=== PATIENT | female | born 1955 | race Native Hawaiian/Other Pacific Islander ===

== ENCOUNTER 2017-01-16 12:25 | Emergency (ER) | payer OTHER ==
[~2017-01-16] VITALS: Ht 162.6 cm; Wt 93.4 kg
[~2017-01-16 12:25] MED LIST: LISI10TA11 PO
[2017-01-16 12:45] VITALS: BP 153/92; TEMP 98
== END 2017-01-16 16:15 | disposition left against medical advice (07) ==
LOC: ED 12:25
DX: Z04.8 Encounter for examination and observation for other specified reasons (principal)
CPT/HCPCS: 99281

== ENCOUNTER 2017-02-12 13:25 | Outpatient (CLI) | payer OTHER ==
[2017-02-12 14:06] LABS: PLATELET COUNT 234 K/uL (152-353)
[2017-02-12 14:36] LABS: POTASSIUM 4.1 mmol/L (3.6-5.2); SODIUM 139 mmol/L (136-145)
== END 2017-02-12 19:46 | disposition home or self-care (01) ==
LOC: LAB 13:25
PROVIDERS: Nurse Practitioner Family
DX: I10 Essential (primary) hypertension (principal); E78.4 Other hyperlipidemia; Z79.899 Other long term (current) drug therapy; E55.9 Vitamin D deficiency, unspecified
CPT/HCPCS: 80053; 80061; 82306; 82607; 83036; 84439; 84443; 85027

== ENCOUNTER 2017-03-13 15:05 | Outpatient (CLI) | payer OTHER ==
[2017-03-13 15:29] LABS: POTASSIUM 4.4 mmol/L (3.6-5.2); SODIUM 141 mmol/L (136-145)
[2017-03-13 15:37] LABS: PLATELET COUNT 219 K/uL (152-353)
== END 2017-03-13 19:08 | disposition home or self-care (01) ==
LOC: LAB 15:05
PROVIDERS: Nurse Practitioner Family
DX: C50.211 Malignant neoplasm of upper-inner quadrant of right female breast (principal)
CPT/HCPCS: 80053; 85027

== ENCOUNTER 2017-04-03 14:22 | Outpatient (CLI) | payer OTHER ==
[2017-04-03 14:42] LABS: PLATELET COUNT 286 K/uL (152-353)
[2017-04-03 15:03] LABS: POTASSIUM 4.3 mmol/L (3.6-5.2); SODIUM 142 mmol/L (136-145)
== END 2017-04-03 19:06 | disposition home or self-care (01) ==
LOC: LAB 14:22
PROVIDERS: Nurse Practitioner Family
DX: Z00.00 Encounter for general adult medical examination without abnormal findings (principal); C50.211 Malignant neoplasm of upper-inner quadrant of right female breast; Z79.899 Other long term (current) drug therapy; I10 Essential (primary) hypertension; E55.9 Vitamin D deficiency, unspecified; E78.4 Other hyperlipidemia; F41.8 Other specified anxiety disorders
CPT/HCPCS: 80053; 80061; 82306; 82607; 83036; 84436; 84443; 85027

== ENCOUNTER 2017-04-17 14:13 | Outpatient (CLI) | payer OTHER ==
[2017-04-17 14:58] LABS: POTASSIUM 4.4 mmol/L (3.6-5.2); SODIUM 139 mmol/L (136-145)
[2017-04-17 15:04] LABS: PLATELET COUNT 182 K/uL (152-353)
== END 2017-04-17 19:18 | disposition home or self-care (01) ==
LOC: LAB 14:13
PROVIDERS: Nurse Practitioner Family
DX: Z79.899 Other long term (current) drug therapy (principal); Z51.81 Encounter for therapeutic drug level monitoring
CPT/HCPCS: 80053; 85007; 85027

== ENCOUNTER 2017-04-23 07:54 | Emergency (ER) | payer OTHER ==
[~2017-04-23] VITALS: Ht 162.6 cm; Wt 89.4 kg
[2017-04-23 08:21] LABS: PLATELET COUNT 217 K/uL (152-353)
[2017-04-23 08:29] LABS: POTASSIUM 3.7 mmol/L (3.6-5.2); SODIUM 136 mmol/L (136-145)
[2017-04-23 09:28] VITALS: BP 157/88; TEMP 97.9
== END 2017-04-23 09:37 | disposition home or self-care (01) ==
LOC: ED 07:54
DX: R11.2 Nausea with vomiting, unspecified (principal); C50.911 Malignant neoplasm of unspecified site of right female breast
CPT/HCPCS: 36415; 80053; 85027; 86318; 96374; 96376; 99284; J2405

== ENCOUNTER 2020-05-09 16:06 | Emergency (ER) | payer OTHER ==
[~2020-05-09] VITALS: Ht 162.6 cm; Wt 93.9 kg
[2020-05-09 16:24] VITALS: BP 106/76; TEMP 99.1
[2020-05-09 17:02] LABS: PLATELET COUNT 316 K/uL (152-353)
== END 2020-05-09 19:07 | disposition home or self-care (01) ==
LOC: ED 16:06
PROVIDERS: Emergency Medicine Emergency Medical Services
DX: K52.89 Other specified noninfective gastroenteritis and colitis (principal)
CPT/HCPCS: 36415; 80053; 82150; 82272; 83690; 85027; 96360; 96375; 99284; J2405

== ENCOUNTER 2020-05-26 09:39 | Outpatient (CLI) | payer OTHER | END 2020-05-26 21:52 | disposition home or self-care (01) | LOC: CT 09:39 | DX: R10.84 Generalized abdominal pain (principal) ==

== ENCOUNTER 2020-09-15 16:33 | Outpatient (CLI) | payer OTHER | END 2020-09-15 19:29 | disposition home or self-care (01) | LOC: CT 16:33 | PROVIDERS: ATTEND Nurse Practitioner Family | DX: R53.83 Other fatigue (principal); R29.898 Other symptoms and signs involving the musculoskeletal system; M54.2 Cervicalgia ==

== ENCOUNTER 2020-10-12 10:44 | Outpatient (CLI) | payer OTHER | END 2020-10-12 19:38 | disposition home or self-care (01) | LOC: RESP 10:44 | PROVIDERS: ATTEND Internal Medicine Cardiovascular Disease | DX: Z01.810 Encounter for preprocedural cardiovascular examination (principal); Z79.899 Other long term (current) drug therapy | CPT/HCPCS: 36415; 80061; 93005; 94760 ==

== ENCOUNTER 2020-11-30 11:59 | Outpatient (CLI) | payer OTHER ==
[2020-11-30 12:38] LABS: PLATELET COUNT 242 K/uL (152-353)
[2020-11-30 12:41] LABS: POTASSIUM 3.7 mmol/L (3.6-5.2); SODIUM 139 mmol/L (136-145)
== END 2020-11-30 21:11 | disposition home or self-care (01) ==
LOC: CT 11:59
PROVIDERS: ATTEND Nurse Practitioner Family
DX: R51.9 Headache, unspecified (principal); R41.82 Altered mental status, unspecified; R53.83 Other fatigue
CPT/HCPCS: 36415; 80053; 82550; 82553; 84484; 85027; 93005

== ENCOUNTER 2021-01-04 10:24 | Emergency (ER) | payer OTHER ==
[~2021-01-04] VITALS: Ht 162.6 cm; Wt 95.3 kg
[2021-01-04 10:34] VITALS: TEMP 98.2
[2021-01-04 11:03] LABS: PLATELET COUNT 163 K/uL (152-353)
[2021-01-04 11:12] LABS: POTASSIUM 4.5 mmol/L (3.6-5.2)
[2021-01-04 12:00] VITALS: BP 96/58
== END 2021-01-04 12:06 | disposition home or self-care (01) ==
LOC: ED 10:24
PROVIDERS: Family Medicine
DX: J06.9 Acute upper respiratory infection, unspecified (principal); B34.9 Viral infection, unspecified
CPT/HCPCS: 80053; 82550; 82553; 84484; 85027; 93005; 99283; 99284

== ENCOUNTER 2021-01-14 12:45 | Inpatient (IN) | payer OTHER ==
[~2021-01-14] VITALS: Ht 162.6 cm; Wt 103.1 kg
[2021-01-14 12:46] VITALS: BP 81/32; TEMP 99.2
[2021-01-14 13:08] LABS: PLATELET COUNT 168 K/uL (152-353)
[2021-01-14 13:18] LABS: POTASSIUM 3.3 mmol/L (3.6-5.2); SODIUM 138 mmol/L (136-145)
[2021-01-14 13:30] VITALS: BP 87/41
[2021-01-14 13:30] LABS: PARTIAL THROMBOPLASTIN TIME 26.1 SECONDS (24.5-33.6)
[2021-01-14 14:16] VITALS: BP 89/55
[2021-01-14 14:43] VITALS: BP 98/57
[2021-01-14 16:28] VITALS: BP 100/58; TEMP 98; Ht 162.6 cm; Wt 103.1 kg
[2021-01-14] MEDS ORDERED: LYRICA50 MG PO (17:45)
[2021-01-14] MEDS ORDERED: FEMARA2.5 MG PO (17:52)
[2021-01-14] MEDS ORDERED: LISI20TA11 PO (17:53)
[2021-01-14] MEDS ORDERED: HYDR10TA47 PO (17:55)
[2021-01-14] MEDS ORDERED: ELIQUIS5 MG PO (17:57)
[2021-01-14] MEDS ORDERED: FLUTICASON50 MCG/AC1 INH (17:59)
--- NOTE | 2021-01-14 19:45 | NUR ---
ENTERED PATIENT'S ROOM. PATIENT LYING IN BED WITH EYES CLOSED. NAD NOTED. NC INTACT @ 3L/MIN. 20G TO LEFT HAND INFUSING NS @ 100ML/HR. NO ERYTHEMA OR SWELLING NOTED. ENCOURAGED PATIENT TO CONTINUE USING INCENTIVE SPIROMETER DIRECTED- SHE IS ABLE TO PULL 500 AT THIS TIME. SHE DOES REPORT PAIN IN BOTH LOWER LEGS. NEGATIVE MASSIEL'S SIGN BILATERALLY. REQUESTING LYRICA 50MG THAT SHE TAKES REGULARLY AT HOME. I INFORMED HER THAT I WOULD HAVE TO RECEIVE AN ORDER FROM THE ER DOCTOR. SHE VERBALIZED UNDERSTANDING. TELEMETRY AND CONTINUOUS PULSE OXIMETER PLACED ON PATIENT. BED LOCKED AND IN LOWEST POSITION. CALL LIGHT WITHIN REACH.
[2021-01-14 20:00] VITALS: BP 105/60; TEMP 99.8
--- NOTE | 2021-01-14 20:30 | NUR ---
IN WITH PATIENT WHILE SHE TRANSFERRED TO THE BATHROOM. SHE STATES THAT SHE STILL FEELS WEAK WHEN GETTING UP. INSTRUCTED HER TO SIT ON THE SIDE OF BED FOR A FEW MINUTES BEFORE STANDING. GAIT WAS UNSTEADY- ASSISTED PATIENT IN MOVING IV PUMP. O2 SATURATION DECREASED TO 80% AFTER PATIENT RETURNED TO BED- SHE REMOVED HER NASAL CANNULA DURING TRANSFER. INSTRUCTED HER THAT WE WOULD NEED TO GET A BSC FOR HER TO USE, SO SHE WOULDN'T HAVE TO REMOVE HER NC. SHE VERBALIZED UNDERSTANDING. EXTENSION SET PLACED ON NASAL CANNULA. BSC IN ROOM. CALL LIGHT WITHIN REACH.
--- NOTE | 2021-01-14 21:14 | NUR ---
CALLED DR. ALVAREZ TO REQUEST ORDER FOR LYRICA 50MG. TELEPHONE ORDER GIVEN FOR LYRICA 50MG 1 CAP PO X ONE TIME DOSE. NO FURTHER ORDERS GIVEN AT THIS TIME.
--- NOTE | 2021-01-14 23:30 | NUR ---
IN TO GIVE PATIENT TYLENOL AND COUGH SYRUP PER HER REQUEST. NC INTACT. NAD NOTED. 200CC OF CLEAR YELLOW URINE EMPTIED FROM BSC. O2 SATURATION DROPPING WHILE PATIENT IS LYING IN BED. BETWEEN 83-87%. ALTERNATED LYING ON RIGHT AND LEFT SIDE AND IN PRONE POSITION. PATIENT DONE WELL IN PRONE POSITION. O2 SATURATION IMPROVED. NOW 97-98%. BED LOCKED AND IN LOWEST POSITION. CALL LIGHT WITHIN EASY REACH.
[2021-01-15] VITALS: BP 97/63; TEMP 98
[2021-01-15 04:00] VITALS: BP 117/65; TEMP 97.5
--- NOTE | 2021-01-15 06:04 | NUR ---
PATIENT RESTING QUIETLY IN BED IN LEFT SIDE LYING POSITION. EYES CLOSED. RESPIRATIONS EVEN AND UNLABORED. NAD NOTED. NC @ 3L/MIN. 20G TO LEFT HAND PATENT AND INTACT. NS INFUSING @ 100ML/HR. BED LOCKED AND IN LOWEST POSITION. CALL LIGHT WITHIN EASY REACH.
[2021-01-15 08:00] VITALS: BP 113/69; TEMP 97.3
--- NOTE | 2021-01-15 08:00 | NUR ---
HISTOLOGY TECHNOLOGIST NOTIFIED STRATEGY LEAD THAT PT'S HR WAS ELEVATED. PT'S HR WAS AT 118 VIA TELEMTRY. STRATEGY LEAD WENT TO PT'S ROOM WHERE PT STATED THAT SHE HAD GOTTEN WINDED WHILE UP TO THE BEDSIDE COMMODE. AFTER GETTING PT BACK INTO BED AND TAKING VITALS ALONG WITH ASSESSMENT, THE PT FELT LIKE EATING BREAKFAST. BREAKFAST WAS SETUP ON BEDSIDE TABLE OVER PT. WHILE PT WAS EATING O2 DROPPED TO THE 82-86 RANGE. RT WAS CONTACTED AND STRATEGY LEAD WAS INSTRUCTED TO TURN NASAL CANULA UP TO 4LPM. AFTER DOING SO AND MONITORING PT, O2 WENT UP TO THE LOWER 90 RANGE. WILL CONTINUE TO MONITOR.
--- NOTE | 2021-01-15 08:45 | NUR ---
PT IS EXHIBITING SIGNS OF TACHYCARDIA ON TELEMTRY AND A HEART RATE OF 86BPM. STRIP HAS BEEN PRINTED TO BE PLACED IN CHART.
--- NOTE | 2021-01-15 09:11 | NUR ---
NURSE INCREASED N/C TO 4 LPM. SPO2 96%
--- NOTE | 2021-01-15 10:05 | NUR ---
PT IS NOW SHOWING NORMAL SINUS RHYTHM WITH A HR OF 78BPM. WILL CONTINUE TO MONITOR.
--- NOTE | 2021-01-15 11:39 | NUR ---
PT'S TELEMTRY BEGAN TO SHOW ANOTHER ABNORMAL WAVE PATTERN. MEN'S AND BOYS' CLOTHING SALESPERSON WENT TO CHECK ON PT. PT STATED THAT SHE FEELS A TIGHTNESS IN HER CHEST THAT SHE THINKS MAY BE HEARTBURN. MD HAS BEEN CONTACTED AND MEN'S AND BOYS' CLOTHING SALESPERSON WAS INSTRUCTED TO ORDER A 12-LEAD AND CARDIAC ENZYMES. WAITING FOR FURTHER INSTRUCTIONS.
--- NOTE | 2021-01-15 11:42 | NUR ---
RT ARRIVED TO PERFORM 12-LEAD ON PT.
[2021-01-15 12:00] VITALS: BP 110/61; TEMP 98.1
[2021-01-15 12:12] LABS: POTASSIUM 3.5 mmol/L (3.6-5.2)
[2021-01-15 16:00] VITALS: BP 113/68; TEMP 97.9
--- NOTE | 2021-01-15 16:32 | NUR ---
PT STATED TO CATALYTIC CASE OPERATOR THAT SHE STILL HAD PRESSURE IN HER CHEST. WHEN CATALYTIC CASE OPERATOR ASKED IF IT IS PRESSURE OR PAIN, PT STATED THAT IT IS PRESSURE. MD HAS BEEN NOTIFIED AND IS ORDERING A CT SCAN, CARDIAC ENZYMES IN 6 HOURS, AND HOB >30 DEGREES. AWAITING FURTHER INSTRUCTIONS.
--- NOTE | 2021-01-15 17:27 | NUR ---
PT'S O2 SATURATION WAS FALLING INTO THE 80'S RANGE. RT WAS CONTACTED AND PLACED PT ON HIGH FLOW.
--- NOTE | 2021-01-15 17:42 | NUR ---
PLACED PT ON HFNC @ 50% FIO2, LITER FLOW AT 40. SPO2 95%, HR 78. PT WOO THERAPY WELL. NURSE NOTIFIED.
[2021-01-15 20:00] VITALS: BP 121/73; TEMP 98.4
--- NOTE | 2021-01-15 20:30 | NUR ---
ENTERED PATIENT'S ROOM. PATIENT LYING IN BED WITH EYES CLOSED. HIGH FLOW NC INTACT. SETTINGS ARE: 40L; 50% 20G TO LEFT HAND INTACT. NS INFUSING @ 100. DENIES PAIN, BUT REQUESTING THAT NORCO 10/325MG BE ORDERED FOR PAIN INSTEAD OF MORPHINE. SHE NORMALLY TAKES THIS AT HOME. I INFORMED HER THAT I WOULD INFORM ONCOMING SHIFT TO SPEAK WITH HOSPITALIST. SHE VERBALIZED UNDERSTANDING. SHE ALSO GAVE ME HER SISTER, KTAIANA'S, PHONE NUMBER IN CASE SHE CALLS TO RECEIVE UPDATES. SHE STATES IT IS OKAY WITH HER IF SHE RECEIVES UPDATES. BED LOCKED AND IN LOWEST POSITION. CALL LIGHT WITHIN EASY REACH.
--- NOTE | 2021-01-15 22:15 | NUR ---
PATIENT HAS BEEN UP TO BSC A FEW TIMES THIS SHIFT. PATIENT DOES DESAT TO 87-90% WHILE TRANSFERRING TO BS. HIGH FLOW NC REMAINS INTACT. O2 SATURATION IMPROVES WHEN PATIENT RETURNS TO BED AND STAYS IN LEFT SIDE-LYING OR PRONE POSITION. NAD NOTED. CALL LIGHT WITHIN EASY REACH.
[2021-01-16] VITALS (7 sets, daily range): BP systolic 112–138; BP diastolic 62–83; TEMP 97.8–98.6
--- NOTE | 2021-01-16 00:30 | NUR ---
PATIENT LYING IN BED WITH EYES CLOSED. HIGH FLOW NC INTACT. NS INFUSING @ 100ML/HR. NAD NOTED. CURRENT O2 SATURATION 95%. BED LOCKED AND IN LOWEST POSITION. CALL LIGHT WITHIN REACH.
[2021-01-16 00:52] LABS: PLATELET COUNT 161 K/uL (152-353)
--- NOTE | 2021-01-16 05:00 | NUR ---
PATIENT'S O2 SAT 88-90%. PATIENT RESTING QUIETLY IN BED WITH EYES CLOSED. NC NOT IN THE RIGHT POSITION. NOW 02 SATS 95-97%. CALL LIGHT WITHIN REACH. PATIENT DENIES ANY OTHER NEEDS AT THIS TIME.
--- NOTE | 2021-01-16 06:14 | NUR ---
PATIENT HAD SMALL COUGHING FIT. ENCOURAGED HER TO TAKE SLOW, DEEP BREATHS. SHE WAS ABLE TO PULL 1000 ON THE INCENTIVE SPIROMETER. IN LEFT SIDE-LYING POSITION NOW. CURRENT O2 SATURATION: 92-95%. BED LOCKED AND IN LOWEST POSITION. CALL LIGHT WITHIN EASY REACH.
--- NOTE | 2021-01-16 20:19 | NUR ---
IN PT'S ROOM AT THIS TIME. PT. VERBALIZED SHE TAKES NORCO 10/325 MG AT HOME FOR PAIN AND THAT SHE WOULD RATHER TAKE THAT INSTEAD OF MORPHINE 2 MG Q4H FOR PAIN. I TOLD HER I WOULD HAVE TO RECEIVE A DOCTOR'S ORDER BEFORE AND PT VERBALZIED UNDERSTANDING. NAD NOTED AT THIS TIME. NS INFUSING AT 100ML/HR AND SIDE RAILS UP TIMES TWO IN A LOW-FOWLERS POSITION WITH CALL LIGHT WITHIN REACH.
--- NOTE | 2021-01-16 20:39 | NUR ---
CALLED PHYSICIAN ABOUT PT'S REQUEST FOR MEDICATION PRN CHANGE FOR NORMAL HOME MEDICATION FOR PAIN RECIEVED AN ORDER AT THIS TIME TO D/C MORPHINE SULFATE 2 MG IVP Q4H FOR PAIN AND TO IMPLEMENT NORCO 7.5/325 MG PO Q6H NEEDED FOR PAIN
--- NOTE | 2021-01-16 21:40 | NUR ---
PM MEDICATIONS GIVEN AT THIS TIME. PT TOLERATED WELL. EDUCATED INCENTIVE SPIROMETER USAGE AT THIS TIME. PT GOT UP TO ONLY 500 ON THE INCENTIVE SPIROMETER.
[2021-01-17 03:52] VITALS: BP 149/85; TEMP 98
[2021-01-17 05:53] LABS: POTASSIUM 3.9 mmol/L (3.6-5.2)
[2021-01-17 08:00] VITALS: BP 133/82; TEMP 98
[2021-01-17 12:00] VITALS: BP 160/70; TEMP 97.8
[2021-01-17 16:00] VITALS: BP 135/60; TEMP 98.2
[2021-01-17 20:13] VITALS: BP 145/84; TEMP 98
--- NOTE | 2021-01-17 20:29 | NUR ---
IN TO GIVE PM MEDS AT THIS TIME. PT IS IN A HIGH-FOWLERS POSITION WITH SIDE RAILS UP TIMES TWO WITH BED IN LOWEST POSITION AND CALL LIGHT WITHIN REACH. EDUCATED PT. ON INCENTIVE SPIROMETER USAGE AND PT ONLY GOT UP TO 500 VOLUME AT THIS TIME. ENCOURAGED PT. TO USE DEVICE MORE FREQUENTLY DURING THE DAY. PT VERBALIZED UNDERSTANDING. PT STILL ON HIGH FLOW NASAL CANNULA AT 40LPM AT 50% CAPACITY. NAD NOTED OR VERBALIZED AT THIS TIME. WILL CONTINUE TO MONITOR.
[2021-01-18 00:08] VITALS: BP 136/83; TEMP 97.5
--- NOTE | 2021-01-18 02:49 | NUR ---
IN TO HANG NORMAL SALINE FLUIDS AT 100 ML/HR AT THIS TIME. PT RESTING QUIETLY WITH SIDE RAILS UP TIMES TWO AND BED IN LOWEST POSITION AT THIS TIME IN A LOW FOWLERS POSITION. CALL LIGHT WITHIN REACH AND NAD NOTED.
[2021-01-18 04:15] VITALS: BP 122/83; TEMP 97.9
--- NOTE | 2021-01-18 06:28 | NUR ---
PT HAD COUGHING SPELL AND RT NOTIFIED. PT DESATED INTO THE 60'S AND HIGH FLOW SETTINGS WERE CHANGED TO 50L @ 60% AT THSI TIME.
--- NOTE | 2021-01-18 06:29 | NUR ---
CALLED TO PATIENT ROOM BY RN DUE TO LOW SPO2. INCREASED HFNC TO 60% AND 50LPM. PATIENT INCREASED TO 90% AND STATES THAT SHE IS FEELING MORE COMFORTABLE AT THIS TIME. WILL CONTINUE TO MONITOR AND WEAN WOO.
[2021-01-18 06:43] LABS: POTASSIUM 4.2 mmol/L (3.6-5.2)
--- NOTE | 2021-01-18 07:50 | NUR ---
REC' REPORT FROM REECE SPENCER RN. PT NOTED TO BE LAYING IN BED ON HER LEFT SIDE IN LOW FOWLERS. IVF INFUSING WITHOUT DIFFICULTY TO 20G TO LEFT WRIST. NS AT 100ML/HR. AM ASSESSMENT COMPLETED AT THIS TIME CRACKLES NOTED TO LEFT LUNG THROUGH OUT. RIGHT SIDE NOTED TO BE DIMINISHED THROUGH OUT. ACTIVE BS X4 QUADRANTS. PT ENCOURAGED TO ROTATE TO RIGHT SIDE, PT STATES "I CAN'T, I DO BETTER ON THIS SIDE" PT O2 NOTED TO BE 98% ON HIGH FLOW AT 50LPM 60%FIO2. PT EDU THAT TURNING WILL HELP WITH DRAINAGE FROM THAT LEFT LUNG. WILL CON'T TO MONITOR PT.
[2021-01-18 08:00] VITALS: BP 125/95; TEMP 97.6
--- NOTE | 2021-01-18 08:30 | NUR ---
SPOKE WITH DR. MADRIGAL ABOUT PT'S MORNING ASSESSMENT AND TURNING AND PRONING AND PT'S COMMENT AND WHAT WAS GIVEN TO ME IN REPORT. DR. MADRIGAL CONFIRMS PT NEEDS TO TURN AND PRONE MUCH SHE CAN TOLERATE TO PROMOTE DRAINAGE AND AIR FLOW THROUGH THE LUNGS, DR. MADRIGAL STATES "I'M OK WITH AN O2 SAT OF 90% FOR A LITTLE WHILE"
--- NOTE | 2021-01-18 09:15 | NUR ---
PT PULSE OX ALARMED SHOWING 80%. IN TO CHECK ON PT. PT NOTED TO BE GETTING BACK IN BED WITH HIGH FLOW O2 ON. PT STATES "I HAD TO USE THE BATHROOM" PT NOTED TO BE SHORT OF BREATH AND COUGHING AT THIS TIME. PT GIVEN AM MEDS. PT EDUCATED ON USE OF IS AND HOW IT HELPS AND THE IMPORTANCE OF IT. PT EDUCATED ON PRONING AND TURNING TO EACH SIDE FOR LONG TOLERATED. PT VERBALIZED UNDERSTANDING AT THIS TIME. PT TOLERATED AM MEDS WELL. WILL CON'T TO MONITOR PT.
[2021-01-18 12:00] VITALS: BP 105/70; TEMP 97.9
--- NOTE | 2021-01-18 15:28 | NUR ---
TITRATED O2 FROM 60% TO 50%. TX TOLERATED WELL AT THIS TIME.
[2021-01-18 16:00] VITALS: BP 122/62; TEMP 98.7
[2021-01-18 20:00] VITALS: BP 137/75; TEMP 98.1
--- NOTE | 2021-01-18 20:15 | NUR ---
PATIENT'S CURRENT O2 SAT IS 86% AND ABOVE. PATIENT LYING IN BED WITH HIGH FLOW NC INTACT. 50%; 60L. STATES SHE JUST GOT UP TO USE THE BSC. INSTRUCTED HER TO LIE IN THE LEFT SIDE LYING POSITION. USED INCENTIVE SPIROMETER X 10 BREATHS AND PULMICORT ADMINISTERED. O2 SATURATION INCREASED TO 90%. ENCOURAGED PATIENT TO TAKE SLOW, DEEP BREATHS. 20G TO LEFT WRIST INTACT WITH NS @ 40ML/HR. GUAIFENESIN DM GIVEN WELL HYDROCODONE FOR PAIN. PATIENT ALSO REQUEST MOM BC IT HELPS WITH HER EPIGASTRIC PAIN. I DID EXPLAIN THAT THIS IS USUALLY GIVEN FOR CONSTIPATION, BUT SHE STATES THAT SHE HAD IT A FEW TIMES ALREADY WITH NO DIARRHEA. I ALSO ENCOURAGED HER TO [place] [facility] [place] VERBALIZED UNDERSTANDING. BED LOCKED AND IN LOWEST POSITION. CALL LIGHT WITHIN EASY REACH.
[2021-01-19] VITALS: BP 121/78; TEMP 98.5
--- NOTE | 2021-01-19 00:45 | NUR ---
CURRENT O2 SATURATION IS 100% ON HIGH FLOW NC.
[2021-01-19 04:00] VITALS: BP 146/79; TEMP 97.7
[2021-01-19 04:48] LABS: PLATELET COUNT 204 K/uL (152-353)
[2021-01-19 04:58] LABS: POTASSIUM 4.2 mmol/L (3.6-5.2)
--- NOTE | 2021-01-19 06:10 | NUR ---
PT RESTING QUIETLY IN BED WITH EYES CLOSED. HIGH FLOW NC INTACT. RESPIRATIONS EVEN AND UNLABORED. NAD NOTED. O2 SATURATION RANGING FROM 93-94%. BED LOCKED AND IN LOWEST POSITION. CALL LIGHT WITHIN REACH.
--- NOTE | 2021-01-19 07:45 | NUR ---
AT PT'S BEDSIDE. PT NOTED TO BE RESTING BUT AWAKE ON LEFT SIDE WITH HIGH FLOW O2 ON AT 50LPM FIO2-60%. IVF NS INFUSING WITHOUT DIFFICULTY AT 40ML/HR. PT GIVEN COMBIVENT, PULMICORT, AND FLONASE PER MD ORDERS. AM ASSESSMENT COMPLETED. NON PITTING EDEMA NOTED TO PT'S BLE. FINE CRACKLES NOTED THROUGH OUT BILAT ON AUSCULTATION. S1-S2 HEARD ON AUSCULTATION. + ABD SOUNDS. PT DENIES ANY C/O AT THIS TIME.
[2021-01-19 08:00] VITALS: BP 135/85; TEMP 97.4
--- NOTE | 2021-01-19 09:20 | NUR ---
ANNA OBANDO, RESPIRATORY AT PT'S BEDSIDE. PT LAYING IN BED IN SEMI-FOWLERS. NO DISTRESS NOTED, PT'S PULSE OX ALARMING IN MID TO LOW 80'S. ANNA REPORTS INCREASING PT'S HIGH FLOW TO 55LPM FIO2-70%. WILL CON'T TO MONITOR PT CLOSELY.
--- NOTE | 2021-01-19 09:20 | NUR ---
TURN UP HIGHFLOW 55LPM/70% AND SATS WAS 90-91% FROM 87%
--- NOTE | 2021-01-19 10:10 | NUR ---
REASSESSED PT'S LUNG SOUNDS. FINE CRACKLES CON'T TO BE NOTED THROUGH OUT BILAT. PT IN SEMI FOWLERS. ENCOURAGED PT TO KEEP MOVING AND TURNING TOLERATED, LAYING PRONE MUCH TOLERATED TO IMPROVE BREATHING AND PROMOTE MOVEMENT OF MUCUS IN LUNGS. PT BLE ELEVATED TO REDUCE SWELLING. ALL AM MEDS COMPLETE. PT TOLERATED WELL. PT REPORTS FEELING BETTER NOT SICK JUST THE SOB. EDU PT SHE WILL HAVE SOME GOOD DAYS AND BAD DAYS, GOOD MOMENTS AND BAD TO NOT GET DISCOURAGED IF SHE FEELS WORSE SOME TIMES MORE THAN OTHERS. PT VERBALIZES UNDERSTANDING. WILL CON'T TO MONITOR PT. O2 SATS CURRENTLY 92% ON HIGH FLOW O2 55LPM FIO2-70%.
[2021-01-19 12:00] VITALS: BP 144/80; TEMP 97.8
[2021-01-19 16:00] VITALS: BP 148/85; TEMP 97.9
--- NOTE | 2021-01-19 16:09 | NUR ---
PATIENT PLACED BACK ON HFNC 60LPM/83% FROM NRB. SATS 98%
[2021-01-19 20:00] VITALS: BP 137/78; TEMP 98
--- NOTE | 2021-01-19 20:00 | NUR ---
PATIENT LYING IN BED WATCHING TV. HIGH FLOW NC INTACT. CURRENT SETTINGS: 60L/MIN @ 88%. NAD NOTED. PATIENT SEEMS TO BE MOVING AROUND WITH MORE EASE THAN PREVIOUSLY NOTED. REQUESTING HYDROCONE FOR CHRONIC BACK AND LEG PAIN. 22G TO LEFT WRIST PATENT AND INTACT. NS INFUSING @ 40ML/HR. BED LOCKED AND IN LOWEST POSITION. CALL LIGHT WITHIN EASY REACH.
[2021-01-20] VITALS (7 sets, daily range): BP systolic 121–150; BP diastolic 78–89; TEMP 97.6–98.2
--- NOTE | 2021-01-20 03:15 | NUR ---
PATIENT'S HR SHOWING 48-50 ON THE MONITOR AT THIS TIME. UPON ENTERING PATIENT'S ROOM, PATIENT RESTING QUIETLY IN BED IN LEFT SIDE-LYING POSITION. EYES CLOSED. RESPIRATIONS EVEN AND UNLABORED. NAD NOTED. CALL LIGHT WITHIN EASY REACH.
--- NOTE | 2021-01-20 04:00 | NUR ---
PATIENT UP TO BSC. O2 SATURATION REMAINS WNL. NAD NOTED. PATIENT CALLED D/T HIGH-FLOW BEEPING. OBSTRUCTION FIXED. PATIENT WAS UNABLE TO MAKE IT TO BSC BEFORE URINATING. ASSISTED PATIENT WITH CHANGING INTO BRIEF AND GOWN. PATIENT TOLERATED WELL. O2 REMAINED STABLE. BED LOCKED AND IN LOWEST POSITION. NO OTHER CONCERNS OR COMPLAINTS VOICED AT THIS TIME. CALL LIGHT WITHIN REACH.
[2021-01-20 05:48] LABS: PLATELET COUNT 229 K/uL (152-353)
[2021-01-20 06:02] LABS: POTASSIUM 3.9 mmol/L (3.6-5.2)
--- NOTE | 2021-01-20 06:15 | NUR ---
IN TO CHECK ON PATIENT. SHE IS RESTING QUIETLY WITH EYES CLOSED. HIGH FLOW NC INTACT. LEFT WRIST IS BENT. IV PUMP BEEPING. AREA PROXIMAL TO IV SITE DOES APPEAR SWOLLEN. NS STOPPED AT THIS TIME. ONE ATTEMPT MADE TO START NEW IV WITH 22G- UNSUCCESSFUL. WILL REPORT TO ONCOMING SHIFT. BED LOCKED AND IN LOWEST POSITION. CALL LIGHT WITHIN EASY REACH.
[2021-01-21 04:27] VITALS: BP 135/71; TEMP 97.7
[2021-01-21 05:19] LABS: PLATELET COUNT 211 K/uL (152-353)
[2021-01-21 05:32] LABS: POTASSIUM 4.1 mmol/L (3.6-5.2)
[2021-01-21 08:00] VITALS: BP 138/77; TEMP 97.4
[2021-01-21 12:00] VITALS: BP 126/79; TEMP 98.1
--- NOTE | 2021-01-21 13:37 | NUR ---
PT ENCOURAGED TO SIT UP IN RECLINER OR ON COUCH. ROOM ARRANGED FOR EASE OF MOVEMENT. PT AGREES AND VERBALIZES UNDERSTANDING OF WHY SHE NEEDS TO GET UP AND MOVE.
[2021-01-21 16:00] VITALS: BP 128/82; TEMP 98.6
--- NOTE | 2021-01-21 16:44 | NUR ---
PT UP TO COUCH, TOLERATING ACTIVITY WELL.
--- NOTE | 2021-01-21 17:50 | NUR ---
PT BACK TO BED, STATES SHE ENJOYED SITTING UP AND IS TIRED NOW.
[2021-01-21 20:00] VITALS: BP 134/92; TEMP 98.4
[2021-01-22] VITALS (7 sets, daily range): BP systolic 98–132; BP diastolic 52–79; TEMP 97.2–98.6
[2021-01-22 05:39] LABS: PLATELET COUNT 204 K/uL (152-353)
[2021-01-22 05:52] LABS: POTASSIUM 3.8 mmol/L (3.6-5.2)
--- NOTE | 2021-01-22 10:15 | NUR ---
PT UP TO COUCH TO SIT, TOLERATES ACTIVITY WELL.
--- NOTE | 2021-01-22 11:48 | NUR ---
PT BACK TO BED. TOLERATED SITTING UP ON COUCH BUT STATES SHE IS TIRED.
--- NOTE | 2021-01-22 14:51 | NUR ---
1430 DECREASED PT. FIO2 TO 75% AND FLOW TO 55LM. WILL CONTINUE TO MONITOR.
--- NOTE | 2021-01-22 15:15 | NUR ---
PATIENT MAINTAINING 93% ON NEW HIGH FLOW SETTINGS 55LPM/75%
--- NOTE | 2021-01-22 17:08 | NUR ---
MDI ADMIN AND CPT PERFORMED. IS USED X 5 REPS. PT ON RT SIDE, TOLERATING NEW SETTINGS, 93% ON 55LPM/70%.
--- NOTE | 2021-01-23 01:37 | NUR ---
PT RESTING. COVID POSITIVE.
[2021-01-23 04:16] VITALS: BP 98/58; TEMP 97.9
[2021-01-23 05:19] LABS: PLATELET COUNT 204 K/uL (152-353)
[2021-01-23 05:32] LABS: POTASSIUM 3.6 mmol/L (3.6-5.2)
[2021-01-23 08:00] VITALS: BP 108/64; TEMP 97.9
--- NOTE | 2021-01-23 11:01 | NUR ---
MD IN WITH PT ASSESSING PT AND EXPLAINING TO PT THAT PHYSICAL THERAPY WILL BE COMING IN TODAY TO HELP START GETTING HER UP AND MOVING. SPOKE WITH AFTERSCHOOL AND STATED THAT PT SOUNDS ALOT BETTER AND MORE CLEAR THAN BEFORE. MD INSTRUCTED AFTERSCHOOL TO KEEP IN CONTACT WITH RESPIRATORY THERAPY TO MAKE SURE THAT PT IS BEING SLOWLY WEANED ON O2. GOAL IS TO GET PT TO A TOLERABLE LEVEL ON THE NASAL CANULA SO PT CAN GO HOME ON NASAL CANULA. PT IS LAYING IN LF ON THE LEFT SIDE WITH O2 ON. BEDSIDE COMMODE WAS CLEANED, PT HAD 300ML OF URINE AND A LARGE BOWEL MOVEMENT. PT DENIES ANY NEEDS AT THIS TIME.
[2021-01-23 12:00] VITALS: BP 109/63; TEMP 98.7
[2021-01-23 16:00] VITALS: BP 114/65; TEMP 97.8
--- NOTE | 2021-01-23 17:00 | NUR ---
HANGING PT'S REMDESIVIR, IV PUMP SHOWS OCCLUSION ON PT'S SIDE. AREA AROUND IV SITE LOOKS BRUISED AND PT STATES THAT SHE IS HAVING A LITTLE BIT OF PAIN AROUND THE SITE. ELIJAH EUBANKS CAME TO ROOM AND CHECKED IV, IV WAS FLUSHED REMOVED A SMALL CLOT. AFTER CLOT REMOVED, IV FLUSHED WITHOUT DIFFICULTY AND WAS TAPED BACK DOWN. PT NO LONGER COMPLAINING ABOUT PAIN IN IV SITE.
--- NOTE | 2021-01-23 17:30 | NUR ---
PT CALLED TO NURSES STATION STATING THAT THE IV PUMP WAS BEEPING. PUMP WAS SHOWING OCCLUSION OF PT'S SIDE AGAIN. PT WAS SITTING UP ON THE EDGE OF THE BED EATING DINNER. WHEN PT STRAIGHTENING OUT ARM AND IV WAS RESTARTED IT NO LONGER SHOWED THAT AN OCCLUSION WAS PRESENT. PT ATE 75% OF HER FOOD AND IS NOW WORKING WITH THE INCENTIVE SPIROMETER REACHING A LEVEL OF 1500. NAD IS NOTED AT THIS TIME.
--- NOTE | 2021-01-23 19:30 | NUR ---
PATIENT RESTING QUIETLY IN BED WATCHING TV. HIGH FLOW NC INTACT. CURRENT SETTINGS: 45L/MIN @ 66%. RESPIRATIONS EVEN AND UNLABORED. NAD NOTED. 22G TO LEFT AC FLUSHED WITH NS. SOME BRUISING NOTED AROUND IV SITE. NS FLUSHED SLOWLY THROUGH IV SITE, BUT PATIENT DENIED ANY PAIN OR DISCOMFORT. REQUESTING HYDROCODONE TONIGHT FOR CHRONIC BACK PAIN. BED LOCKED AND IN LOWEST POSITION. CALL LIGHT WITHIN REACH.
[2021-01-23 20:00] VITALS: BP 118/66; TEMP 98.3
[2021-01-24] VITALS: BP 96/52; TEMP 98.3
[2021-01-24 04:00] VITALS: BP 104/62; TEMP 98
--- NOTE | 2021-01-24 05:40 | NUR ---
PATIENT RESTING QUIETLY IN BED. EYES CLOSED. RESPIRATIONS EVEN AND UNLABORED. HIGH FLOW NC INTACT. FLUSHED 22G TO LEFT AC WITH NS. SITE FLUSHED. NO LEAKING OR DISCOMFORT NOTED. BED LOCEKD AND IN LOWEST POSITION. CALL LIGHT WITHIN EASY REACH.
[2021-01-24 06:08] LABS: PLATELET COUNT 178 K/uL (152-353)
[2021-01-24 06:21] LABS: POTASSIUM 3.6 mmol/L (3.6-5.2)
[2021-01-24 08:00] VITALS: BP 102/61; TEMP 97.9
--- NOTE | 2021-01-24 09:22 | NUR ---
MANUFACTURERS SERVICE REPRESENTATIVE NOTICED ON NOV THAT PT HAS A HOME MED. AFTER BEING UNABLE TO FIND THE HOME MED, [facility], MANUFACTURERS SERVICE REPRESENTATIVE CONTACTED PHARMACY AND SPOKE WITH MICHAEL. MICHAEL SAID THAT WE DO NOT CURRENTLY HAVE THE MEDICINE IN STOCK AND TO SEE IF THE PT IS STILL TAKING IT AND IF SHE BROUGHT IT WITH HER. MANUFACTURERS SERVICE REPRESENTATIVE ASKED PT AND PT STATED THAT SHE DOES STILL TAKE F[facility] EVERY NIGHT AND NEEDS IT BUT DENIES BRINGING IT WITH HER. MICHAEL STATED THAT A MED REQUEST WAS SENT TO THE FLOOR FOR THAT MEDICATION LAST WEEK. MANUFACTURERS SERVICE REPRESENTATIVE WILL TALK TO PT AGAIN TO SEE IF SHE CAN HAVE SOMEONE BRING THE MEDICINE TO THE HOSPITAL.
--- NOTE | 2021-01-24 09:46 | NUR ---
PT STATES THAT SHE DOES NOT HAVE ANYONE THAT CAN BRING THE MEDICATION TO THE HOSPITAL. MICHAEL FROM PHARMACY SPOKE WITH DR. MADRIGAL AND STATED THAT HE WANTS HER TO CONTINUE THAT HOME MEDICATION. MICHAEL IS CONTACTING PT'S PHARMACY NOW TO SEE IF WE CAN RECIEVE AN EMERGENCY DOSE OF THE MEDICATION.
[2021-01-24 12:00] VITALS: BP 131/89; TEMP 98.4
--- NOTE | 2021-01-24 13:14 | NUR ---
TURN PATIENT TO 40LPM/53% SATS ARE 96% AT THIS TIME.
--- NOTE | 2021-01-24 14:57 | NUR ---
MICHAEL FROM PHARMACY BROUGHT HOME MED TO THE FLOOR AFTER BEING FILLED IN THE HOSPITAL PHARMACY. HOME MED IS BEING PLACED IN THE HOME MED CABINET IN THE MED ROOM TO BE GIVEN IN THE AM AT ITS SCHEDULED TIME.
[2021-01-24 16:00] VITALS: BP 112/62; TEMP 98.2
--- NOTE | 2021-01-24 16:26 | NUR ---
PARENT COACH SPOKE WITH RESPIRATORY ABOUT PT'S O2 SETTINGS. RESPIRATORY STATED THAT PT'S HIGH FLOW WAS WEANED DOWN TWICE TODAY, PT IS NOW AT 40L FLOW AND 53% FIO2. WHEN ASKED ABOUT HOW CLOSE SHE IS TO POTENTIALLY BEING ON A NASAL CANULA RESPIRATORY STATED THAT WHILE IN WITH PT, THE PT'S HEART RATE INCREASED TO 113 MOVING FROM THE BSC TO THE BED. THEREFORE IT IS GOING TO TAKE SOME MORE TIME AND WEANING BEFORE PT CAN BE SWITCHED TO NASAL CANULA.
--- NOTE | 2021-01-24 19:45 | NUR ---
PT ALERT AND ORIENTED SITTING UP IN BED WITH NO ACUTE DISTRESS NOTED, RESP RATE NONLABORED BUT SHALLOW, O2 VIA HIGH FLOW NC IN USE, TELEMETRY IN USE RATE REGULAR IN 90s, IV LOCK INTACT TO L AC FLUSHED WITH 3ML NS, DENIES ANY NEEDS AT THIS TIME, TALKATIVE WITH COIL TIER. ENCOURAGED TO CALL NEEDED, RAILS UP, BED IN LOW POSITION, CALL LIGHT IN REACH, PT REMAINS ON ISOLATION FOR COVID.
[2021-01-24 20:00] VITALS: BP 116/73; TEMP 98.8
[2021-01-25] VITALS: BP 91/52; TEMP 98.2
--- NOTE | 2021-01-25 01:00 | NUR ---
RESTING WITH EYES CLOSED, NO S/S OF PAIN OR DISTRESS NOTED, HIGH FLOW NC IN USE, TELEMETRY IN USE, IV LOCK INTACT, WILL MONITOR, RAILS UP, BED IN LOW POSITION.
[2021-01-25 04:00] VITALS: BP 104/64; TEMP 98
--- NOTE | 2021-01-25 05:00 | NUR ---
RESTING WITH EYES CLOSED, NO S/S OF PAIN OR DISTRESS NOTED, HIGH FLOW NC IN USE, TELEMETRY IN USE, WILL MONITOR, RAILS UP, BED IN LOW POSITION.
[2021-01-25 06:40] LABS: PLATELET COUNT 147 K/uL (152-353)
[2021-01-25 07:30] LABS: POTASSIUM 3.7 mmol/L (3.6-5.2)
[2021-01-25 08:00] VITALS: BP 122/72; TEMP 98.2
[2021-01-25 12:00] VITALS: BP 112/68; TEMP 98.2
[2021-01-25 16:00] VITALS: BP 121/75; TEMP 98.1
[2021-01-25 20:00] VITALS: BP 121/70; TEMP 98.2
--- NOTE | 2021-01-25 21:16 | NUR ---
IN TO GIVE PT PM MEDS AT THIS TIME. PT TOLERATED WELL. PT CURRENTLY ON 35L @ 45% ON HIGH FLOW NASAL CANNULA. PT IS SATTING 95% AT THIS TIME. EDUCATED PT ON INCENTIVE SPIROMETER USAGE. PT GOT UP TO 1000 FOR THE FIRST 5 BREATHS AND 500 THE LAST FIVE. NAD NOTED. CALL LIGHT WITHIN REACH AND BED IN LOW FOWLERS POSITION AT THIS TIME.
[2021-01-26] VITALS: BP 108/59; TEMP 98.2
--- NOTE | 2021-01-26 00:19 | NUR ---
RT AT BEDSIDE WITH CRIMINOLOGY PROFESSOR AT THIS TIME GIVING ALBUTEROL TREATMENT. INCENTIVE SPIROMETER WAS USED ALSO AT THIS TIME BY PT. PT GOT UP TO 1000 TIMES 5 BREATHS. NAD NOTED AT THIS TIME. PT SATTING 96% AT THIS TIME. CALL LIGHT WITHIN REACH WITH BED IN LOWEST POSITION.
[2021-01-26 04:00] VITALS: BP 102/55; TEMP 98.4
[2021-01-26 05:39] LABS: PLATELET COUNT 149 K/uL (152-353)
[2021-01-26 06:00] LABS: POTASSIUM 3.9 mmol/L (3.6-5.2)
[2021-01-26 08:00] VITALS: BP 166/75; TEMP 98.3
--- NOTE | 2021-01-26 10:18 | NUR ---
PT SITTING LOW FOWLERS IN BED, A/O X3. REPORTS HEADACHE 5/10 ON VERBAL PAIN SCALE, STATES SHE HAS HER NORMAL DISCOMFORT TO BOTH FEET. TYLENOL ADMINISTERED WITH AM MEDS AND SHE REPORTS THIS HAS HELPED. EDUCATION PROVIDED ON INCREASING ACTIVITY AND FREQUENT USE OF I/S. PT STATES SHE LIKES USING THE SMART VEST AND VERBALIZES UNDERSTANDING ABOUT INCREASING ACTIVITY AND FREQUENT USE OF I/S. MDI ADMINISTERED WITH SPACER, EDUCATION PROVIDED, PT VERBALIZED UNDERSTANDING AND DEMONSTRATES PROPER USE OF DEVICE. RONCHI NOTED BILATERAL LOWER LOBES, FINE CRACKLES NOTED TO BILATERAL UPPER LOBES, ACTIVE BOWEL SOUNDS NOTED X4 WITH LAST BM REPORTED BY PATIENT OF 01/25. 1+PE NOTED TO BLE WITH MORE EDEMA NOTED TO TOP OF LEFT FOOT THAN RIGHT. PATIENT PROACTIVE WITH PEDAL PUMPS WHILE IN BED. CONTINUOUS PULSE OX IN PLACE, SATS ARE 96% ON HIGH FLOW AT 35LPM/45%. PT STATES SHE WISHES SHE COULD GET HOME BY THE WEEKEND AND VERBALIZES READINESS TO CONTINUE WEANING OFF THE HIGH FLOW. PT TRANSFERS FROM BED TO BSC, BED TO SOFA PER SELF. CALL LIGHT IN EASY REACH, BED LOW, LOCKED, SR UP X2 FOR SAFETY.
[2021-01-26 12:00] VITALS: BP 117/76; TEMP 98.2
[2021-01-26 16:00] VITALS: BP 105/63; TEMP 98.6
--- NOTE | 2021-01-26 17:00 | NUR ---
HI FLOW SETTINGS CHANGED TO 35% AT 30 LPM, PT TOLERATING WELL, MAINTAINING SATS BETWEEN 92 AND 95%. PT STATES SHE DOES NOT FEEL ANXIOUS ABOUT CHANGE AND IS TOLERATING WELL.
--- NOTE | 2021-01-26 17:03 | NUR ---
DECREASED FIO2 TO 30% AND DECREASED TO 30LPM. SPO2 95% AND HR 87. PATIENT IS TOLERATING WELL AT THIS TIME. WILL CONTINUE TO MONITOR.
--- NOTE | 2021-01-26 18:20 | NUR ---
DR. CAMPOS IN TO SEE PT AND UPDATE HER THAT SHE MAY BE GOING HOME ON O2 WITH HOME HEALTH.
[2021-01-26 20:12] VITALS: BP 124/80; TEMP 98.2
--- NOTE | 2021-01-26 20:30 | NUR ---
IN TO GIVE PM MEDS AT THIS TIME WITH RT ALSO AT BEDSIDE. PT IS CURRENTLY ON 30L @ 35% ON HIGH FLOW NASAL CANNULA. PT WAS RESTING UPON ENTERING THE ROOM WITH SIDE RAILS UP TIMES TWO WITH BED IN LOWEST POSITION. PT WAS SATTING 93% AT THIS TIME. INCENTIVE SPIROMETER WAS USED BY PT AT THIS TIME TIMES 10 WITH THE FIRST FIVE BREATHS BEING AT 1000 AND THE LAST FIVE BEING CLOSER TO 500. EDUCATED ON USING SPIROMETER EVEN WHEN STAFF IS NOT PRESENT TO HELP STRENGTHEN LUNGS TO BUILD STRENGTH WHILE ALSO TEACHING YOU TO TAKE SLOW DEEP BREATHS. PT VERBALIZED UNDERSTANDING AND NAD NOTED UPON EXITING ROOM.
[2021-01-27 00:20] VITALS: BP 99/55; TEMP 97.9
--- NOTE | 2021-01-27 02:12 | NUR ---
LOWERED FIO2 TO 30% NOTIFIED NURSE.
--- NOTE | 2021-01-27 02:15 | NUR ---
RT WAS AT BEDSIDE TO DO TREATMENT AND LOWERED FIO2 TO 30% AT 30L AT THIS TIME. PT IS CURRENTLY SATTING 94% AND IN NO ACUTE DISTRESS. CALL LIGHT WITHIN REACH AND BED IN LOWEST POSITION.
--- NOTE | 2021-01-27 03:10 | NUR ---
PT IS RESTING IN A LOW FOWLERS POSITION WITH SIDE RAILS UP TIMES TWO WITH BED IN LOWEST POSITION WITH NAD NOTED. PT IS TOLERATING NEW HIGH FLOW NASAL CANNULA SETTINGS WELL AND IS CURRENTLY SATTING 94% AT THIS TIME.
[2021-01-27 04:26] VITALS: BP 104/60; TEMP 98.3
[2021-01-27 05:17] LABS: PLATELET COUNT 139 K/uL (152-353)
[2021-01-27 05:42] LABS: POTASSIUM 3.9 mmol/L (3.6-5.2)
[2021-01-27 08:00] VITALS: BP 131/53; BP 145/95; TEMP 98.1; TEMP 98.3
--- NOTE | 2021-01-27 09:30 | NUR ---
PT STATED THAT SHE WAS HAVING A TERRIBLE HEADACHE THIS MORNING. PRN TYLENOL WAS GIVEN. WILL CONTINUE TO MONITOR.
--- NOTE | 2021-01-27 10:30 | NUR ---
RT WAS CALLED TO CHANGE PT FROM HIGH FLOW TO NASAL CANULA PER DOCTOR'S ORDERS. PT HAS TOLERATED CHANGE WELL AND IS MAINTAINING AN O2 SATURATION AROUND 94%. PRN DOSE OF ATIVAN WAS GIVEN TO DECREASE THE ANXIETY OF O2 CHANGE. WILL CONTINUE TO MONITOR FOR ANY SIGNS OF DISTRESS.
--- NOTE | 2021-01-27 10:45 | NUR ---
1035 RT PLACED PT ON 5LPM NC WITH HUMIDITY. PT IS TOLERATING WELL AT THIS TIME. SPO2 RANGING FROM 97-98%. WILL CONTINUE TO MONITOR.
[2021-01-27 12:00] VITALS: BP 105/53; TEMP 98.1
--- NOTE | 2021-01-27 13:46 | NUR ---
JUST SPOKE WITH RYAN FROM , RYAN IS ORDERING HOME O2 FOR PT TO GO HOME TODAY.
--- NOTE | 2021-01-27 13:58 | NUR ---
RT COMPLETED O2 QUALIFIER. SEE PROCESS INTERVENTION NOTES. PT IS NOW ON 2LPM NC AT 28%. SPO2 AT 94%. WILL CONTINUE TO MONITOR.
--- NOTE | 2021-01-27 14:14 | NUR ---
RT HAS WEANED PT TO 2 LPM NASAL CANULA. PT IS MAINTAINING AN O2 SATURATION OF 97%. NO ACUTE DISTRESS IS NOTED AT THIS TIME.
[2021-01-27 16:00] VITALS: BP 133/63; TEMP 97.8
--- NOTE | 2021-01-27 16:19 | NUR ---
JUST MET WITH PT TO INFORM PT THAT SHE CAN GO HOME TODAY. MD ENSURED THAT HOME O2 AND PORTABLE O2 HAVE BEEN OBTAINED. PT HAS DRESSED HERSELF WITHOUT ANY DRAMATIC DROPS IN O2, PT IS STILL ON O2 AT 2 LPM VIA NASAL CANULA WITH AN 02 SATURATION OF 94%. PT IS IN A VERY POSITIVE MOOD AND IS EXCITED ABOUT GOING HOME.
[2021-01-27] MEDS ORDERED: PULMICORT180 MCG/AC INH (17:23)
[2021-01-27] MEDS ORDERED: IPRAAER INH (17:24)
[2021-01-27] MEDS ORDERED: PANTOPRAZOLE 40MG TA PO (17:24)
== END 2021-01-27 18:07 | disposition home or self-care (01) | DRG 193 ==
LOC: ED 12:45 → MED/SURG 14:15
PROVIDERS: Hospitalist; Internal Medicine Endocrinology, Diabetes & Metabolism; ADMIT Internal Medicine; ATTEND Internal Medicine
DX: J12.82 Pneumonia due to coronavirus disease 2019 (principal); J96.01 Acute respiratory failure with hypoxia; I10 Essential (primary) hypertension; I95.89 Other hypotension; Z85.3 Personal history of malignant neoplasm of breast; Z86.718 Personal history of other venous thrombosis and embolism; E66.01 Morbid (severe) obesity due to excess calories; Z68.39 Body mass index [BMI] 39.0-39.9, adult
CPT/HCPCS: 36415; 80053; 80320; 82550; 83880; 84484; 85007; 85027; 85610; 85730; 87040; 87635; 87651; 93005; 94667; 94668; 94760; 96360; 96365; 96366; 96375; 99284; J1100; J1650; J1956; J2405; Q9963; U0003

== ENCOUNTER 2021-02-08 14:03 | Outpatient (CLI) | payer OTHER ==
[~2021-02-08 14:03] MED LIST changes: +ELIQUIS5 MG PO; +FEMARA2.5 MG PO; +FLUTICASON50 MCG/AC1 INH; +HYDR10TA47 PO; +IPRAAER INH; +LISI20TA11 PO; +LYRICA50 MG PO; +PANTOPRAZOLE 40MG TA PO; +PULMICORT180 MCG/AC INH
== END 2021-02-08 21:37 | disposition home or self-care (01) ==
LOC: LAB 14:03
PROVIDERS: ATTEND Nurse Practitioner Family
DX: R30.0 Dysuria (principal)
CPT/HCPCS: 81000; 87086; 87088

== ENCOUNTER 2021-02-10 12:26 | Outpatient (CLI) | payer OTHER | END 2021-02-10 22:41 | disposition home or self-care (01) | LOC: LAB 12:26 | PROVIDERS: ATTEND Nurse Practitioner Family | DX: R30.0 Dysuria (principal) | CPT/HCPCS: 81000; 87088 ==

== ENCOUNTER 2021-03-03 09:47 | Outpatient (CLI) | payer OTHER | END 2021-03-03 19:56 | disposition home or self-care (01) | LOC: LABW 09:47 | PROVIDERS: ATTEND Psychiatry & Neurology Neurology | DX: G60.8 Other hereditary and idiopathic neuropathies (principal); R73.9 Hyperglycemia, unspecified; Z79.899 Other long term (current) drug therapy | CPT/HCPCS: 36415; 82607; 82746; 83036; 84207; 84425; 84443 ==

== ENCOUNTER 2021-05-15 10:27 | Outpatient (CLI) | payer OTHER | END 2021-05-15 19:10 | disposition home or self-care (01) | LOC: RAD 10:27 | PROVIDERS: ATTEND Physician Assistant | DX: M25.562 Pain in left knee (principal); M25.561 Pain in right knee ==

== ENCOUNTER 2021-08-17 10:00 | Outpatient (CLI) | payer OTHER | END 2021-08-17 19:18 | disposition home or self-care (01) | LOC: RAD 10:00 | PROVIDERS: ATTEND Nurse Practitioner Family | DX: R07.81 Pleurodynia (principal) ==

== ENCOUNTER 2021-12-25 13:49 | Outpatient (CLI) | payer OTHER | END 2021-12-25 19:00 | disposition home or self-care (01) | LOC: CT 13:49 | PROVIDERS: ATTEND Physical Medicine & Rehabilitation Pain Medicine | DX: R07.89 Other chest pain (principal) ==

== ENCOUNTER 2022-01-23 08:39 | Outpatient (CLI) | payer OTHER | END 2022-01-23 19:39 | disposition home or self-care (01) | LOC: US 08:39 | PROVIDERS: ATTEND Internal Medicine | DX: N18.32 Chronic kidney disease, stage 3b (principal) ==

== ENCOUNTER 2022-01-26 11:52 | Outpatient (CLI) | payer OTHER | END 2022-01-26 18:56 | disposition home or self-care (01) | LOC: RAD 11:52 | PROVIDERS: ATTEND Physician Assistant | DX: M25.562 Pain in left knee (principal) ==

== ENCOUNTER 2022-05-21 10:04 | Outpatient (CLI) | payer OTHER | END 2022-05-21 18:50 | disposition home or self-care (01) | LOC: LABW 10:04 | PROVIDERS: ATTEND Nurse Practitioner Family | DX: Z01.818 Encounter for other preprocedural examination (principal) ==

== ENCOUNTER 2022-06-04 20:46 | Emergency (ER) | payer OTHER ==
[~2022-06-04] VITALS: Ht 162.6 cm; Wt 105.2 kg
[2022-06-04 20:50] VITALS: TEMP 100
[2022-06-04 21:08] LABS: PLATELET COUNT 244 K/uL (152-353)
[2022-06-04 21:16] LABS: POTASSIUM 3.7 mmol/L (3.6-5.2)
[2022-06-04 22:33] VITALS: BP 109/57
== END 2022-06-04 22:35 | disposition home or self-care (01) ==
LOC: ED 20:46
PROVIDERS: Family Medicine
DX: U07.1 COVID-19 (principal); R50.81 Fever presenting with conditions classified elsewhere
CPT/HCPCS: 80053; 81002; 82550; 85027; 87502; 96360; 96374; 99284; J1885

== ENCOUNTER 2022-09-17 11:05 | Outpatient (CLI) | payer OTHER | END 2022-09-17 18:57 | disposition home or self-care (01) | LOC: RAD 11:05 | PROVIDERS: ATTEND Nurse Practitioner Family | DX: Z13.820 Encounter for screening for osteoporosis (principal); N95.8 Other specified menopausal and perimenopausal disorders ==

== ENCOUNTER 2022-11-17 13:37 | Outpatient (CLI) | payer OTHER | END 2022-11-17 18:53 | disposition home or self-care (01) | LOC: RAD 13:37 | PROVIDERS: ATTEND Physician Assistant | DX: M25.552 Pain in left hip (principal) ==

== ENCOUNTER 2023-01-03 15:10 | Outpatient (CLI) | payer OTHER | END 2023-01-03 18:00 | disposition home or self-care (01) | LOC: US 15:10 | PROVIDERS: ATTEND Nurse Practitioner Family | DX: N93.8 Other specified abnormal uterine and vaginal bleeding (principal) ==